=== PATIENT | male | born 2000 | race Caucasian/White ===

== ENCOUNTER 2022-12-08 08:00 | Emergency (ER) | payer OTHER ==
[~2022-12-08] VITALS: Ht 175.3 cm; Wt 63.5 kg
[2022-12-08 08:03] VITALS: BP 108/85
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
[2022-12-08 08:31] VITALS: BP 108/85
--- NOTE | 2022-12-08 08:33 | NUR ---
PATIENT IVY rex wilde [facility] DEPT. PATIENT EXAMINED BY DR. Nesbitt. PATIENT MEDICALLY CLEARED AND RELEASED IN CUSTODY IN STABLE CONDITION. ORIGINAL PRE-BOOK FORM GIVEN TO OFFICER Raffi #[id number].
== END 2022-12-08 08:31 ==
LOC: MED 08:00
DX: V49.88XA Car occupant (driver) (passenger) injured in other specified transport accidents, initial encounter; Y93.89 Activity, other specified; Y92.89 Other specified places as the place of occurrence of the external cause; Y99.8 Other external cause status
CPT/HCPCS: 99283